=== PATIENT | female | born 1995 | race Caucasian/White ===

== ENCOUNTER 2020-11-15 16:01 | Emergency (ER) | payer OTHER ==
[2020-11-15 16:36] VITALS: BP 127/87; PULSE 107; TEMP 99.6; BMI 20.9
[2020-11-15] MEDS ORDERED: IBUPROFEN 400 MG TABLET (FP) PO ONE (16:59)
[2020-11-15 18:18] LABS: EPI CELLS 8 /uL (0-25.1); HYALINE CASTS 1 /uL (0-3.1); URINE APPEARANCE CLEAR; URINE BACTERIA 294 /uL (0-1359); URINE BILIRUBIN NEGATIVE (NEGATIVE); URINE COLOR YELLOW; URINE GLUCOSE (UA) NEGATIVE (NEGATIVE); URINE KETONE NEGATIVE (NEGATIVE); URINE LEUK ESTERASE NEGATIVE (NEGATIVE); URINE NITRITE NEGATIVE (NEGATIVE); URINE PROTEIN NEGATIVE (NEGATIVE); URINE UROBILINOGEN 0.2 mg/dL (0.2-1.0); URINE WBC 5 /uL (0-25.8)
[2020-11-15 18:20] LABS: HCG,QUALITATIVE URINE Negative
[2020-11-15] MEDS ORDERED: KETOROLAC TROMETHAMINE 30 MG/1 ML VIAL IM ONE (19:03)
[2020-11-15 19:18] LABS: THROAT:GRP A STREP Negative (Negative)
[2020-11-15] MEDS ORDERED: KETOROLAC TROMETHAMINE 30 MG/1 ML VIAL ONE (19:24)
== END 2020-11-15 19:40 | disposition home or self-care (01) ==
LOC: JER 16:01
PROC: 3E0233Z Introduction of Anti-inflammatory into Muscle, Percutaneous Approach (ICD-10-PCS; principal; 2020-11-15)
DX: J02.9 Acute pharyngitis, unspecified (principal); R11.0 Nausea
CPT/HCPCS: 81003; 84703; 87086; 87804; 87880; 99284-25; C9803; U0003